=== PATIENT | male | born 1955 | race Caucasian/White ===

== ENCOUNTER 2022-01-27 11:30 | Inpatient (IN) | payer MEDICARE, MEDICAID ==
[~2022-01-27] VITALS: Ht 175.3 cm; Wt 108.3 kg
[2022-01-27] MEDS ORDERED: SODIUM CHLORIDE 0.9% 500 ML IVB ONE (12:30)
[2022-01-27] MEDS ORDERED: SODIUM CHLORIDE 0.9% 1,000 ML IV ONE ×2 (12:30→19:15)
[2022-01-27 14:08] LABS: Urine Bacteria NONE SEEN /hpf (None Seen); Urine WBC 517 /hpf (0 - 3); Urine WBC Clumps PRESENT /hpf (None Seen)
[2022-01-27 14:12] LABS: Urine Blood 3+ /uL (Negative)
[2022-01-27 15:13] LABS: Hematocrit 47.4 % (41.0-53.0); Hemoglobin 15.4 g/dL (13.5-17.5); Mean Corpuscular Hemoglobin 32.7 pg (28.0-32.0); Mean Corpuscular Hgb Conc. 32.5 g/dL (32.0-36.0); Mean Corpuscular Volume 100.5 fL (80.0-100.0); Red Blood Cells 4.72 10^6/uL (4.5-5.90); White Blood Cell 10.9 10^3/uL (4.4-10.8)
[2022-01-27 15:15] LABS: Basophils % (manual) 0 (0.0-2.0); Blast Cells 0; Eosinophils % (manual) 0 (0-7); Metamyelocytes % 0; Monocytes % (manual) 0 (0-12); Myelocytes % 0; Promyelocytes % 0; Reactive Lymphocytes 0
[2022-01-27] MEDS ORDERED: cefTRIAXone 1GM/50ML D5W 50 ML IV ONE (15:15)
[2022-01-27 15:17] LABS: INR 0.93 (0.9-1.15); Partial Thromboplastin Time 27.3 sec (24.6-33.4)
[2022-01-27 15:44] LABS: Potassium 3.8 mmol/L (3.5-5.1)
[2022-01-27 15:53] LABS: Albumin 3.5 g/dL (3.4-5.0); BUN/Creatinine Ratio 13.1; Calcium 9.3 mg/dL (8.5-10.1); Magnesium 2.3 mg/dL (1.6-2.6)
[2022-01-27 16:07] LABS: Bilirubin, Total 0.7 mg/dL (0.2-1.0); Total Protein 7.2 g/dL (6.4-8.2)
[2022-01-27] MEDS ORDERED: ONDANSETRON HCL 4 MG/2 ML VIAL IV ONE (18:15)
[2022-01-27] MEDS ORDERED: MORPHINE SULFATE INJ 2 MG/ml SYRG IV ONE (18:15)
[2022-01-27] MEDS ORDERED: ACETAMINOPHEN 325 MG TAB PO PRN (19:15)
[2022-01-27] MEDS ORDERED: DEXTROSE (50%) 50ML SYRG IV PRN (19:15)
[2022-01-27 20:12] LABS: Band Neutrophils % (manual) 9; Lymphocytes % (manual) 73 (10.0-50.0)
[2022-01-27 20:25] LABS: Cholesterol 140 mg/dL (< 200)
[2022-01-27 20:27] LABS: HDL Cholesterol 80 mg/dL (40-59); LDL Cholesterol 58 mg/dL (< 100); Triglycerides 85 mg/dL (< 150)
[2022-01-27] MEDS ORDERED: ePHEDrine SULFATE 50 MG/ML AMP ONE (20:50)
[2022-01-27] MEDS ORDERED: PROPOFOL 10 MG/ML 20 ML IV ONE (20:50)
[2022-01-27] MEDS ORDERED: GLYCOPYRROLATE 0.2 MG/ML 1ML VIAL ONE (20:50)
[2022-01-27] MEDS ORDERED: fentaNYL CITRATE 100 MCG/2 ML VL ONE (20:50)
[2022-01-27] MEDS ORDERED: KETAMINE HCL 10 ML ONE (20:50)
[2022-01-27] MEDS ORDERED: ONDANSETRON HCL 4 MG/2 ML VIAL ONE (20:50)
[2022-01-27] MEDS ORDERED: MIDAZOLAM HCL 2MG/2ML 2ml VIAL (1mg/ml) ONE (20:50)
[2022-01-27] MEDS ORDERED: LIDOCAINE 2% JELLY 11ml (GLYDO) ONE (21:59)
[2022-01-27] MEDS ORDERED: HYDROmorphone HCL 2 MG/ML VL/or syr ONE (22:02)
[2022-01-27] MEDS ORDERED: ONDANSETRON HCL 4 MG/2 ML VIAL IV PRN (22:30)
[2022-01-27] MEDS: ACCU-CHEK COMFORT CURVE STRIP VI SCH (22:30)
[2022-01-27] MEDS ORDERED: ACCU-CHEK COMFORT CURVE STRIP VI ONE (22:30)
[2022-01-27] MEDS: InsuLIN REG 1unit/0.01ml Soln (100units/ml) SC SCH (22:35)
[2022-01-27] MEDS: HYDROmorphone HCL 2 MG/ML VL/or syr IV PRN ×2 (22:48→22:58)
[2022-01-28] MEDS: MORPHINE SULFATE INJ 2 MG/ml SYRG IV PRN ×3 (02:11→11:34)
[2022-01-28 04:09] VITALS: BP 139/82
[2022-01-28 05:00] VITALS: BP 149/86
[2022-01-28] MEDS: ACCU-CHEK COMFORT CURVE STRIP VI SCH ×4 (06:43→22:34)
[2022-01-28] MEDS: InsuLIN REG 1unit/0.01ml Soln (100units/ml) SC SCH ×4 (06:45→22:38)
[2022-01-28 06:46] LABS: Hematocrit 38.6 % (41.0-53.0); Hemoglobin 12.6 g/dL (13.5-17.5); Mean Corpuscular Hemoglobin 32.4 pg (28.0-32.0); Mean Corpuscular Hgb Conc. 32.6 g/dL (32.0-36.0); Mean Corpuscular Volume 99.5 fL (80.0-100.0); Red Blood Cells 3.88 10^6/uL (4.5-5.90); White Blood Cell 8.1 10^3/uL (4.4-10.8)
[2022-01-28] MEDS: ONDANSETRON HCL 4 MG/2 ML VIAL IV PRN (06:51)
[2022-01-28 07:08] LABS: Basophils % (manual) 0 (0.0-2.0); Blast Cells 0; Metamyelocytes % 0; Myelocytes % 0; Promyelocytes % 0
[2022-01-28 09:00] VITALS: BP 125/60
[2022-01-28] MEDS: cefTRIAXone 1GM/50ML D5W 50 ML IV SCH (09:22)
[2022-01-28] MEDS: HYDROcodone-ACET 5/325MG TAB PO PRN (10:37)
[2022-01-28 11:05] LABS: Band Neutrophils % (manual) 25; Eosinophils % (manual) 1 (0-7); Lymphocytes % (manual) 42 (10.0-50.0); Monocytes % (manual) 3 (0-12); Reactive Lymphocytes 16
[2022-01-28 13:00] VITALS: BP 122/55
[2022-01-28 14:45] LABS: Hepatitis C Antibody Negative (Negative)
[2022-01-28 17:00] VITALS: BP 136/76
[2022-01-28 22:00] VITALS: BP 135/79
[2022-01-28] MEDS: DOCUSATE SOD 100 MG CAP PO SCH (22:38)
[2022-01-29 05:00] VITALS: BP 129/75
[2022-01-29] MEDS: ACCU-CHEK COMFORT CURVE STRIP VI SCH ×4 (06:14→22:26)
[2022-01-29] MEDS: InsuLIN REG 1unit/0.01ml Soln (100units/ml) SC SCH ×4 (06:14→22:00)
[2022-01-29 06:27] LABS: Potassium 3.2 mmol/L (3.5-5.1)
[2022-01-29 06:40] LABS: BUN/Creatinine Ratio 12.8; Calcium 8.2 mg/dL (8.5-10.1)
[2022-01-29 06:49] LABS: Hematocrit 39.3 % (41.0-53.0); Hemoglobin 13.1 g/dL (13.5-17.5); Mean Corpuscular Hemoglobin 32.9 pg (28.0-32.0); Mean Corpuscular Hgb Conc. 33.3 g/dL (32.0-36.0); Mean Corpuscular Volume 98.8 fL (80.0-100.0); Red Blood Cells 3.98 10^6/uL (4.5-5.90); Red Cell Distribution Width 14.5 % (11.8-14.3); White Blood Cell 11.7 10^3/uL (4.4-10.8)
[2022-01-29 07:07] LABS: Band Neutrophils % (manual) 0; Basophils % (manual) 0 (0.0-2.0); Blast Cells 0; Eosinophils % (manual) 0 (0-7); Metamyelocytes % 0; Myelocytes % 0; Promyelocytes % 0; Reactive Lymphocytes 0
[2022-01-29 08:43] LABS: Lymphocytes % (manual) 73 (10.0-50.0); Monocytes % (manual) 3 (0-12)
[2022-01-29 09:12] VITALS: BP 166/78
[2022-01-29] MEDS: DOCUSATE SOD 100 MG CAP PO SCH ×2 (10:07→22:30)
[2022-01-29] MEDS: cefTRIAXone 1GM/50ML D5W 50 ML IV SCH (10:08)
[2022-01-29] MEDS: HYDROcodone-ACET 5/325MG TAB PO PRN ×2 (10:15→14:20)
[2022-01-29] MEDS ORDERED: POTASSIUM CHL 20 Meq TABLET PO ONE (11:15)
[2022-01-29] MEDS ORDERED: LEVO500T31 PO (11:17)
[2022-01-29] MEDS ORDERED: ERTAPENEM SOD INJ 1 GM in SODIUM CHL 0.9% 50 ML IV ONE (12:00)
[2022-01-29 13:00] VITALS: BP 153/83
[2022-01-29] MEDS: ONDANSETRON HCL 4 MG/2 ML VIAL IV PRN ×2 (14:23→18:14)
[2022-01-29 16:44] VITALS: BP 169/83
[2022-01-29 22:00] VITALS: BP_SYST 108; BP_SYST 151; BP_DIAS 42; BP_DIAS 80
[2022-01-30] VITALS (7 sets, daily range): BP systolic 98–140; BP diastolic 65–78
[2022-01-30] MEDS: ACCU-CHEK COMFORT CURVE STRIP VI SCH ×4 (06:33→21:34)
[2022-01-30] MEDS: InsuLIN REG 1unit/0.01ml Soln (100units/ml) SC SCH ×4 (06:35→21:38)
[2022-01-30] MEDS: DOCUSATE SOD 100 MG CAP PO SCH ×2 (10:05→21:34)
[2022-01-30] MEDS: ERTAPENEM SOD INJ 1 GM in SODIUM CHL 0.9% 50 ML IV SCH (10:05)
[2022-01-30] MEDS: HYDROcodone-ACET 5/325MG TAB PO PRN (10:11)
[2022-01-30] MEDS: MORPHINE SULFATE INJ 2 MG/ml SYRG IV PRN ×2 (10:14→20:51)
[2022-01-31] MEDS: MORPHINE SULFATE INJ 2 MG/ml SYRG IV PRN (03:01)
[2022-01-31 05:00] VITALS: BP 125/68
[2022-01-31] MEDS: ACCU-CHEK COMFORT CURVE STRIP VI SCH ×2 (06:47→11:43)
[2022-01-31] MEDS: InsuLIN REG 1unit/0.01ml Soln (100units/ml) SC SCH ×2 (06:50→11:44)
[2022-01-31 08:00] VITALS: BP 151/95
[2022-01-31 08:05] VITALS: BP 151/95
[2022-01-31] MEDS: ERTAPENEM SOD INJ 1 GM in SODIUM CHL 0.9% 50 ML IV SCH (09:08)
[2022-01-31] MEDS: DOCUSATE SOD 100 MG CAP PO SCH (09:09)
[2022-01-31 11:02] VITALS: BP 151/95
== END 2022-01-31 14:17 | disposition home health service (06) | DRG 669 ==
LOC: ER 11:30 → OVERFLOW 19:08 → WEST WING 23:28
PROVIDERS: ADMIT Registered Nurse; ATTEND Internal Medicine
PROC: 0TCB8ZZ Extirpation of Matter from Bladder, Via Natural or Artificial Opening Endoscopic (ICD-10-PCS; 2022-01-27)
PROC: 0T7D8ZZ Dilation of Urethra, Via Natural or Artificial Opening Endoscopic (ICD-10-PCS; 2022-01-27)
PROC: 0T5C8ZZ Destruction of Bladder Neck, Via Natural or Artificial Opening Endoscopic (ICD-10-PCS; principal; 2022-01-27 21:30)
PROC: 05H933Z Insertion of Infusion Device into Right Brachial Vein, Percutaneous Approach (ICD-10-PCS; 2022-01-29)
PROC: B54MZZA Ultrasonography of Right Upper Extremity Veins, Guidance (ICD-10-PCS; 2022-01-29)
PROC: 05HC33Z Insertion of Infusion Device into Left Basilic Vein, Percutaneous Approach (ICD-10-PCS; 2022-01-31)
PROC: B54NZZA Ultrasonography of Left Upper Extremity Veins, Guidance (ICD-10-PCS; 2022-01-31)
DX: R31.0 Gross hematuria (principal); C91.10 Chronic lymphocytic leukemia of B-cell type not having achieved remission; Z16.12 Extended spectrum beta lactamase (ESBL) resistance; N39.0 Urinary tract infection, site not specified; E78.5 Hyperlipidemia, unspecified; E11.65 Type 2 diabetes mellitus with hyperglycemia; N43.3 Hydrocele, unspecified; B96.20 Unspecified Escherichia coli [E. coli] as the cause of diseases classified elsewhere; Z20.822 Contact with and (suspected) exposure to COVID-19; Z92.3 Personal history of irradiation; Z85.46 Personal history of malignant neoplasm of prostate; Z90.79 Acquired absence of other genital organ(s)
CPT/HCPCS: 36415; 71046; 74176; 76870; 80048; 80053; 80061; 81001; 82962; 83036; 83690; 83735; 84443; 85007; 85027; 85610; 85730; 86803; 87040; 87086; 87088; 87186; 87340; 87426; 96361; 96365; 96375; G0378; J0696; J1335; J1815; J2250; J2405; J2704